=== PATIENT | male | born 1975 | race Caucasian/White ===

== ENCOUNTER → 2020-07-23 | Outpatient (CLI) | payer OTHER | LOC: LAB 14:20 | PROVIDERS: ATTEND Family Medicine | DX: R05 Cough (principal); Z20.822 Contact with and (suspected) exposure to COVID-19 ==

== ENCOUNTER → 2020-11-27 | Outpatient (CLI) | payer OTHER ==
[2020-11-27 09:18] LABS: URINE BILIRUBIN NEGATIVE (Negative); URINE BLOOD TRACE (Negative); URINE CLARITY CLEAR; URINE COLOR YELLOW; URINE GLUCOSE-RANDOM* NEGATIVE (Negative); URINE KETONES NEGATIVE (Negative); URINE LEUKOCYTES-REFLEX NEGATIVE (Negative); URINE NITRITE-REFLEX NEGATIVE (Negative); URINE PROTEIN (DIPSTICK) NEGATIVE (Negative); URINE SPECIFIC GRAVITY >= 1.030 (1.005-1.035); URINE UROBILINOGEN 0.2 E.U./dl (0.2-1.0)
[2020-11-27 09:27] LABS: ABSOLUTE NEUTROPHILS 2.8 thou/uL (1.4-8.2); BASOPHILS 0.7 % (0.0-2.0); EOSINOPHILS 3.6 % (0.0-3.0); HEMATOCRIT 44.5 % (42.0-52.0); HEMOGLOBIN 15.1 gm/dL (14.0-18.0); LYMPHOCYTES 44.9 % (24.0-44.0); MCH 30.7 pg (26.0-34.0); MCV 90.4 fL (80.0-100.0); MONOCYTES 10.7 % (1.0-8.0); PLATELET COUNT 231 thou/uL (150-400); POLYS 40.1 % (36.0-66.0); RBC 4.92 mil/uL (4.50-6.00); RDW 13.5 % (10.5-14.5)
[2020-11-27 09:32] LABS: ALBUMIN 3.7 g/dL (3.4-5.0); ANION GAP 10 mmol/L (7-16); BUN 17 mg/dL (7-18); CALCIUM 8.5 mg/dL (8.5-10.1); CHLORIDE 105 mmol/L (98-107); CHOLESTEROL 244 mg/dL (<200); CO2 26 mmol/L (21-32); CREATININE 1.3 mg/dL (0.7-1.3); GLUCOSE 93 mg/dL (74-106); HDL CHOLESTEROL 62 mg/dL (>40); LDL CHOLESTEROL 153 mg/dL (<100); POTASSIUM 3.9 mmol/L (3.5-5.1); SGOT 28 U/L (15-37); SGPT 42 U/L (30-65); SODIUM 141 mmol/L (136-145); TC:HDL 3.9 Ratio (Not establshd); TOTAL BILIRUBIN 0.3 mg/dL (0.2-1.0); TOTAL PROTEIN 7.3 g/dL (6.4-8.2); TRIGLYCERIDE 148 mg/dL (<150); VLDL 30 mg/dL (<40)
[2020-11-27 16:06] LABS: PSA 0.8 ng/mL (0.0-4.0); TESTOSTERONE* 245 ng/dL (264-916)
== END ==
LOC: LAB 08:44
PROVIDERS: ATTEND Family Medicine
DX: I10 Essential (primary) hypertension (principal); E78.2 Mixed hyperlipidemia; G47.33 Obstructive sleep apnea (adult) (pediatric); K21.9 Gastro-esophageal reflux disease without esophagitis

== ENCOUNTER → 2021-01-09 | Outpatient (CLI) | payer OTHER | LOC: CAT 15:32 | PROVIDERS: ATTEND Family Medicine | DX: Z13.6 Encounter for screening for cardiovascular disorders (principal) ==